=== PATIENT | female | born 1950 | race Caucasian/White ===

== ENCOUNTER 2021-09-28 09:40 | Outpatient (CLI) | payer MEDICARE | END 2021-09-28 09:41 | disposition home or self-care (01) | LOC: CSHLAB 09:40 | PROVIDERS: ATTEND Internal Medicine Gastroenterology | DX: Z20.822 Contact with and (suspected) exposure to COVID-19 (principal); Z12.11 Encounter for screening for malignant neoplasm of colon | CPT/HCPCS: 87811 ==

== ENCOUNTER 2021-10-03 07:08 | Day surgery (SDC) | payer MEDICARE ==
[2021-09-27 15:22] VITALS: BMI 28.3
[2021-10-03] MEDS ORDERED: Lidocaine 1% MPF 2 ML VIAL ONE (08:03)
[2021-10-03] MEDS ORDERED: Lidocaine 1% PF 5 ML VIAL ONE (08:47)
[2021-10-03] MEDS ORDERED: PROPOFOL 40 ML ONE (08:48)
== END 2021-10-03 10:32 | disposition home or self-care (01) ==
LOC: CSHSDC 07:08
PROVIDERS: ATTEND Internal Medicine Gastroenterology
PROC: 0DBM8ZX Excision of Descending Colon, Via Natural or Artificial Opening Endoscopic, Diagnostic (ICD-10-PCS; principal; 2021-10-03)
DX: Z12.11 Encounter for screening for malignant neoplasm of colon (principal); D12.6 Benign neoplasm of colon, unspecified; K64.9 Unspecified hemorrhoids; Q43.8 Other specified congenital malformations of intestine; E11.9 Type 2 diabetes mellitus without complications; E78.5 Hyperlipidemia, unspecified; E03.9 Hypothyroidism, unspecified; Z85.3 Personal history of malignant neoplasm of breast; Z79.82 Long term (current) use of aspirin; Z79.84 Long term (current) use of oral hypoglycemic drugs; Z79.890 Hormone replacement therapy; Z79.899 Other long term (current) drug therapy
CPT/HCPCS: 88305; J2704